=== PATIENT | male | born 1965 | race Caucasian/White ===

== ENCOUNTER → 2021-05-05 02:54 | Outpatient (CLI) | payer BC, SELFPAY ==
[2021-05-05 18:36] LABS: SARS-CoV-2 RNA PCR Negative
== END ==
PROVIDERS: PCP Family Medicine; Visit Provider Physician Assistant
DX: R06.02 Shortness of breath (principal); R09.81 Nasal congestion; Z20.822 Contact with and (suspected) exposure to COVID-19
CPT/HCPCS: C9803; U0003; U0005

== ENCOUNTER → 2023-12-31 15:22 | Outpatient (REF) | payer BC, SELFPAY | LOC: ANHLAB 15:22 | PROVIDERS: PCP Family Medicine; Visit Provider Plastic Surgery | DX: L72.0 Epidermal cyst (principal) | CPT/HCPCS: 88305 ==